=== PATIENT | female | born 1945 | race Caucasian/White ===

== ENCOUNTER → 2019-05-31 | Outpatient (CLI) | payer MEDICARE, OTHER ==
--- NOTE | 2019-05-31 17:04 | KCIC ---
EXAM: AP, lateral and lumbosacral spot views with bilateral oblique views of the lumbar spine DATE: 05/31/2019 12:00 AM INDICATION: Low back pain, degenerative disc disease, radiculopathy COMPARISON: No Prior FINDINGS: For the purposes of this report there are 5 nonrib-bearing lumbar-type vertebral bodies. Vertebral body heights are preserved. No evidence for acute fracture. There is 4 mm retrolisthesis of L2 on L3 and 3 mm retrolisthesis of L3 on L4. Moderate disc height loss at L1-2, L2-3 and L3-4. Moderate to severe disc height loss at L5-S1. No definite pars defects are seen on the oblique views. Advanced facet degenerative changes L3-4 and below. Vascular calcifications are seen. IMPRESSION: 1. No evidence for acute fracture. 2. Multilevel spondylosis as above. 3. Grade 1 retrolisthesis of L2 on L3 and L3 and L4. Electronically signed by: Carlton Suresh MD (05/31/2019 5:01 PM) [facility]
== END | disposition home or self-care (01) ==
LOC: KCIC 11:34
PROVIDERS: ATTEND Family Medicine
DX: M47.26 Other spondylosis with radiculopathy, lumbar region (principal); M43.16 Spondylolisthesis, lumbar region; M51.16 Intervertebral disc disorders with radiculopathy, lumbar region; R29.890 Loss of height
CPT/HCPCS: 72110

== ENCOUNTER → 2019-06-16 | Outpatient (CLI) | payer MEDICARE, OTHER ==
--- NOTE | 2019-06-16 11:03 | KCIC ---
LUMBAR SPINE WO CONTRAST History: Evaluate for lumbar stenosis. Abnormal x-ray. Right hip pain and right lateral calf pain. Technique: Multiplanar, multi sequential MR imaging was performed of the lumbar spine. Comparison: Radiograph May 31, 2019 Findings: Mild retrolisthesis L2 on L3 and L3 on L4, unchanged. Multilevel degenerative endplate changes. L5-S1 degenerative endplate edema with L5 inferior endplate and S1 superior endplate Schmorl's nodes. Normal vertebral body height. No fracture. Conus terminates at the normal location. No evidence of nerve root clumping. L1-L2: Small posterior disc bulge. Mild facet arthropathy. No canal or neuroforaminal narrowing. L2-L3: Mild retrolisthesis. Small posterior disc bulge. Moderate facet arthropathy. Right facet joint effusion. Mild bilateral subarticular recess narrowing. No canal narrowing. Mild bilateral neural foraminal narrowing. L3-L4: Mild retrolisthesis. Broad-based posterior disc bulge. Moderate facet arthropathy. Right facet joint effusion. Bilateral subarticular recess narrowing. Minimal canal narrowing. Mild right and moderate left neural foraminal narrowing. L4-L5: Broad-based posterior disc bulge. Advanced facet arthropathy. Subarticular recess narrowing. Mild canal narrowing. Mild bilateral neural foraminal narrowing. L5-S1: Severe disc height loss. Broad-based posterior disc bulge with right subarticular superimposed small disc protrusion. Advanced facet arthropathy. Severe right subarticular recess narrowing with abutment of the descending right S1 nerve root. Mild left subarticular recess narrowing. No canal narrowing. Moderate to severe bilateral neural foraminal narrowing. Impression: 1. Multilevel lumbar spondylosis with multilevel canal or subarticular recess narrowing. 2. L5-S1 severe right subarticular recess narrowing with compression of the descending right S1 nerve root. Correlate for right S1 radiculopathy. 3. Multilevel neural foraminal narrowing most prominent L5-S1. Correlate for bilateral L5 radiculopathy. Electronically signed by: Franklyn Tao DO (06/16/2019 11:00 AM) [id number]
== END | disposition home or self-care (01) ==
LOC: KCIC MRI 09:59
PROVIDERS: ATTEND Family Medicine
DX: M48.07 Spinal stenosis, lumbosacral region (principal); M51.16 Intervertebral disc disorders with radiculopathy, lumbar region; M53.3 Sacrococcygeal disorders, not elsewhere classified; M46.86 Other specified inflammatory spondylopathies, lumbar region
CPT/HCPCS: 72148

== ENCOUNTER → 2020-12-26 | Outpatient (CLI) | payer MEDICARE, OTHER ==
[~2020-12-26] MED LIST: ATOR80TA72 PO; FLUT9.9S NS; OLME40TA12 PO
== END ==
LOC: LAB 11:01
PROVIDERS: ATTEND Internal Medicine Gastroenterology
DX: Z01.812 Encounter for preprocedural laboratory examination (principal); Z20.822 Contact with and (suspected) exposure to COVID-19; R19.4 Change in bowel habit
CPT/HCPCS: U0003

== ENCOUNTER → 2020-12-29 | Day surgery (SDC) | payer MEDICARE, OTHER ==
[2020-12-29] MEDS: IV RINGERS,LACTATED 1000ML 1,000 ML IV SCH ×2 (07:00→08:28)
[2020-12-29 10:00] VITALS: BP 118/64
== END | disposition home or self-care (01) ==
LOC: SURG 07:54
PROVIDERS: ATTEND Internal Medicine Gastroenterology
DX: R19.4 Change in bowel habit (principal); K64.0 First degree hemorrhoids; K57.30 Diverticulosis of large intestine without perforation or abscess without bleeding; I10 Essential (primary) hypertension; E78.00 Pure hypercholesterolemia, unspecified; K21.9 Gastro-esophageal reflux disease without esophagitis; M19.90 Unspecified osteoarthritis, unspecified site; Z87.891 Personal history of nicotine dependence; Z79.899 Other long term (current) drug therapy; Z90.49 Acquired absence of other specified parts of digestive tract; Z90.710 Acquired absence of both cervix and uterus; Z98.890 Other specified postprocedural states; Z72.89 Other problems related to lifestyle
CPT/HCPCS: 45378

== ENCOUNTER → 2021-06-05 | Outpatient (CLI) | payer MEDICARE, OTHER ==
[2020-12-29 08:21] VITALS: BP 166/73
--- NOTE | 2021-06-05 15:36 | KCIC ---
EXAM: Right knee, 3 views. HISTORY: Pain. COMPARISON: None. FINDINGS: 3 views of the right knee are obtained. There is medial compartment joint space narrowing, subchondral sclerosis, subchondral cyst formation and marginal spurring. There is enthesopathy along the patella. There is a trace amount of joint fluid. There is no fracture, dislocation or subluxation . IMPRESSION: 1. Mild medial compartment predominant osteoarthritis of the right knee with trace joint fluid. 2. No acute osseous finding. Electronically signed by: Winnie Cruz MD (06/05/2021 3:34 PM) [id number]
== END ==
LOC: KCIC 13:37
PROVIDERS: ATTEND Family Medicine
DX: M17.11 Unilateral primary osteoarthritis, right knee (principal); M76.891 Other specified enthesopathies of right lower limb, excluding foot; M25.861 Other specified joint disorders, right knee
CPT/HCPCS: 73562

== ENCOUNTER → 2021-09-10 | Outpatient (CLI) | payer MEDICARE, OTHER ==
[2020-12-29 08:21] VITALS: BP 166/73
[~2021-09-10] MED LIST changes: +ASCO500T4 PO; +BIMA2.5D OP; +CHOL5000 PO; +ESOM40CA PO; +FAMO10TA26 PO; +HYDR-2761 PO; +LACT1CAP37 PO
--- NOTE | 2021-09-10 14:36 | RAD ---
STUDY: CT of the right upper extremity without contrast INDICATION: Right shoulder dislocation COMPARISON: Right shoulder radiograph same day CT chest 08/14/2021 TECHNIQUE: Axial CT imaging of the right shoulder without contrast. Coronal and sagittal reformats we re obtained. One or more of the following individualized dose reduction techniques were utilized for this examinat ion: 1. Automated exposure control 2. Adjustment of the mA and/or kV according to patient size 3. Use of iterative reconstruction technique. FINDINGS: There is persistent anterior and inferior dislocation of the head relative to the glenoid. There is a tiny fracture of the anterior inferior glenoid rim. Possible minimal flattening of the pos terior superior humeral head. Evaluation of the rotator cuff, labrum, and biceps tendon limited on nonarthrogram exam. Rotator cuff muscles are intact. There is a joint effusion and edema about the shoulder. Myocardial clavicular de generative joint disease. There is a 9 mm pulmonary nodule in the right middle lobe (image 100, series 2). A 7 mm nodule in the right lower lobe (image 93, series 2). Several additional nodules in the right lung measuring up to 5 mm. These are unchanged from 08/14/2021 long for differences in slice thickness of the exams. IMPRESSION: 1. Anterior glenohumeral dislocation. 2. Tiny osseous Bankart lesion of the glenoid. Possible minimal Hill-Sachs deformity of the humeral h ead. 3. Unchanged pulmonary nodules in the right lung. Recommend continued surveillance. Electronically signed by: Beth Cassidy MD (09/10/2021 2:33 PM) [id number]
== END ==
LOC: CT 10:49
PROVIDERS: ATTEND Orthopaedic Surgery
DX: S42.141A Displaced fracture of glenoid cavity of scapula, right shoulder, initial encounter for closed fracture (principal); S43.014A Anterior dislocation of right humerus, initial encounter; M25.411 Effusion, right shoulder; M19.011 Primary osteoarthritis, right shoulder; R91.8 Other nonspecific abnormal finding of lung field; X58.XXXA Exposure to other specified factors, initial encounter; Y93.89 Activity, other specified; Y92.89 Other specified places as the place of occurrence of the external cause; Y99.8 Other external cause status
CPT/HCPCS: 73200

== ENCOUNTER 2021-09-11 11:45 | Inpatient (IN) | payer MEDICARE, OTHER ==
[~2021-09-11] VITALS: Ht 160 cm; Wt 53.0 kg
[2021-09-11] MEDS ORDERED: IV RINGERS,LACTATED 1000ML 1,000 ML IV SCH (12:00)
[2021-09-11] MEDS ORDERED: fentaNYL PF VIAL 100 MCG/2 ML VIAL IVP PRN ×2 (12:00)
[2021-09-11] MEDS ORDERED: PROCHLORPERAZINE 10 MG/2 ML VIAL. IVP PRN (12:00)
[2021-09-11] MEDS ORDERED: MORPHINE SULFATE 2 MG/ML INJ. IVP PRN (12:00)
[2021-09-11] MEDS ORDERED: HYDROmorphone 2 MG/ML VIAL IVP PRN (12:00)
[2021-09-11 12:10] VITALS: BP 181/75
[2021-09-11] MEDS ORDERED: ceFAZolin SODIUM IV Push 1 GM VIAL. IVP ONE (12:26)
[2021-09-11] MEDS ORDERED: ROPIVacaine 0.5% PF 20 ML VIAL. ONE (12:33)
[2021-09-11] MEDS ORDERED: MIDAZOLAM HCL/PF 2 MG/2 ML VIAL. ONE (12:33)
[2021-09-11] MEDS ORDERED: ceFAZolin SODIUM IV Push 1 GM VIAL. IVP PRN (13:00)
[2021-09-11] MEDS ORDERED: fentaNYL PF VIAL 100 MCG/2 ML VIAL ONE (13:42)
[2021-09-11] MEDS ORDERED: VANCOMYCIN 1 GM VIAL. ONE (13:44)
[2021-09-11] MEDS ORDERED: BUPIVACAINE MPF 0.5% 30 ML VIAL. ONE (13:45)
[2021-09-11] MEDS ORDERED: methylPREDNISolone ACETATE 80 MG/ML VIAL. ONE (13:45)
[2021-09-11] MEDS ORDERED: DEXAMETHASONE SOD PHOS 20 MG/5 ML VIAL. ONE (14:04)
[2021-09-11] MEDS ORDERED: PROPOFOL 10 MG/ML (20ML) VIAL. IV ONE (14:04)
[2021-09-11] MEDS ORDERED: ONDANSETRON PF 4 MG/2 ML VIAL. ONE (14:05)
[2021-09-11] MEDS ORDERED: LIDOCAINE 2% PF 5 ML VIAL. ONE (14:05)
[2021-09-11] MEDS ORDERED: ROCURONIUM 50 MG/5 ML VIAL. ONE (14:05)
[2021-09-11] MEDS ORDERED: NEOSTIGMINE METHYLSULFATE 5 MG/5 ML SYRINGE. ONE (15:48)
[2021-09-11] MEDS ORDERED: GLYCOPYRROLATE 1 MG/5 ML VIAL. ONE (15:48)
[2021-09-11] MEDS ORDERED: 0.9 % SODIUM CHLORIDE 10 ML DISP.SYRIN. IV PRN (17:30)
[2021-09-11] MEDS ORDERED: DEXTROSE 50% 25 GM / 50ML DISP.SYRIN. IV PRN (17:30)
[2021-09-11] MEDS ORDERED: ACETAMINOPHEN 325 MG TABLET. PO PRN (17:30)
[2021-09-11] MEDS ORDERED: ZOLPIDEM 5 MG TABLET. PO PRN (17:30)
[2021-09-11] MEDS ORDERED: CALCIUM CARBONATE 500 MG TAB.CHEW PO PRN (17:30)
[2021-09-11] MEDS ORDERED: traMADol 50 MG TABLET PO PRN ×2 (17:30)
[2021-09-11] MEDS ORDERED: NALOXONE 0.4 MG/ML VIAL. IV PRN (17:30)
[2021-09-11] MEDS ORDERED: IV NORMAL SALINE 1000ML BAG 1,000 ML IV SCH (17:30)
[2021-09-11] MEDS ORDERED: PROCHLORPERAZINE 5 MG TABLET. PO PRN (17:30)
[2021-09-11] MEDS ORDERED: MORPHINE SULFATE 2 MG/ML INJ. IV PRN (17:30)
[2021-09-11] MEDS ORDERED: IV DEXTROSE 5 %-0.45 % NACL 1,000 ML IV SCH (17:30)
--- NOTE | 2021-09-11 18:16 | PDOC4 ---
Operative Note Operative Note Date of surgery 09/11/2021 Preoperative diagnosis: Right shoulder dislocation with chronic anterior positioning Postoperative diagnosis: Same with Alpsa lesion and rotator cuff compromise Operative procedure: Right reverse shoulder arthroplasty Surgeon: Malvin Assist: Gianluca brink assist Anesthesia: General plus scalene block Estimated blood loss: 250cc Complications: None Operative indications: Please see my orthopedic clinic note for detailed operative indications and note that we discussed the condition of persistent dislocation for about 12 days following her injury and the possibility of closed reduction versus operative treatment possible Latarjet stabilization versus the possibility of reverse shoulder arthroplasty depending on her intraoperative findings. Consent was obtained and she agrees to proceed with surgical evaluation and treatment Operative text: Patient was identified procedure verified patient placed in the supine position on the operating table. After adequate amounts of general anesthesia plus a pre-existing scalene block were obtained patient was placed in the supine position on the operating room cart and closed reduction of the shoulder was attempted under general anesthesia but failed. She was then placed in the beachchair position all bony prominences were well-padded and the right shoulder was prepped and draped in standard sterile fashion. After timeout was performed patient procedure identified and verified a deltopectoral approach was carried out on the right shoulder deltoid was bluntly elevated from its distal insertion and subscapularis was divided sharply from its insertion. Supraspinatus and infraspinatus noted to be compromised and she was noted to have a periosteal sleeve avulsion. Sharp reamer was advanced and reaming carried out up to a size 11 mm diameter and the cutting guide set at approximately 10 degrees version for the Janina reverse shoulder arthroplasty system. Proximal reaming carried out to allow placement of a 11 x 130 mm trial stem. Glenoid was then exposed capsular release was carried out and a guidewire was placed in slight declination low centrally on the glenoid face first over drilling was accomplished and then a reamer carried out to good bleeding bone and with debridement of the residual labral tissue a 15 mm trabecular metal baseplate was placed and excellent positioning of screws inferiorly into the scapular spine for a 36 mm length and to the base of the coracoid with 36 mm length were excellent fixation and were locked in place. A 36 mm glenosphere was then impacted in place to engage the Burleson taper and trial fitting with a +3 mm standard trial resulted in excellent range of motion and stability. Trial humeral components were then removed through irrigation carried out normal saline solution and a nonporous humeral stem 11 x 130 length was assembled on the back table with a +3 mm 36 mm diameter polyethylene liner which was impacted in place in proper version reduced and found to have equivalent deltoid tension and stability. Thorough irrigation carried out with dilute Betadine solution further irrigation with saline solution and pulse lavage 1 g vancomycin was placed in the joint fascia closure accomplished with running Vicryl suture subcutaneous closure with buried Vicryl suture skin closure with subcuticular Monocryl and sterile dressings were applied. Patient was returned to recovery room in stable condition having tolerated procedure well. Gianluca baker was present for the procedure and assisted in patient positioning prepping draping retraction closure and dressings. GERMANIA KHAN MD Sep 11, 2021 18:16
[2021-09-11 19:30] VITALS: BP 120/63
[2021-09-11 20:30] VITALS: BP 120/51
--- NOTE | 2021-09-11 20:50 | RAD ---
Exam: Right shoulder 2 views INDICATION: Postop TECHNIQUE: Frontal and transscapular Y views of the right shoulder Comparisons: None FINDINGS: Total shoulder arthroplasty changes noted. Skin dmitriy overlying the surgical site is seen. Soft tis sues are unremarkable. No acute fractures seen. IMPRESSION: Right shoulder arthroplasty as described above. Electronically signed by: Marie Guerra MD (09/11/2021 8:48 PM) [facility]
[2021-09-11] MEDS: oxyCODONE/APAP 5/325 1 TAB TABLET PO PRN (21:52)
[2021-09-11] MEDS: CELECOXIB 100 MG CAPSULE. PO SCH (21:52)
[2021-09-11] MEDS: ceFAZolin SODIUM IV Push 1 GM VIAL. IVP SCH (21:53)
[2021-09-11 22:00] VITALS: BP 124/53
[2021-09-11] MEDS ORDERED: LATANOPROST 0.005% OPHTH SOLUTION 2.5ML BOTTLE. OU SCH (22:00)
[2021-09-11] MEDS ORDERED: FAMOTIDINE 20 MG TABLET. PO PRN (22:00)
[2021-09-11 23:00] VITALS: BP 125/64
[2021-09-12] MEDS: oxyCODONE/APAP 7.5/325 1 TAB TABLET PO PRN ×2 (02:03→17:12)
[2021-09-12] MEDS: ceFAZolin SODIUM IV Push 1 GM VIAL. IVP SCH ×2 (04:05→09:00)
[2021-09-12] MEDS ORDERED: MAGNESIUM HYDROXIDE 2,400 MG/30 ML ORAL.SUSP. PO PRN (06:00)
[2021-09-12 06:29] VITALS: BP 106/51
[2021-09-12 07:33] LABS: HEMATOCRIT 29.6 % (36.0-47.0); HEMOGLOBIN 9.7 g/dL (12.0-15.5)
--- NOTE | 2021-09-12 08:30 | NUR ---
awake sitting on side of bed. right side remains bruised and swollen. saline lock intact. surgical dressing has a moderate amount of drainage. right hand remains swollen and dark purple. sling remains in place. ice renewed. transferred to chair. good pulse and ovement in right fingers.
[2021-09-12] MEDS: FERROUS SULFATE 325 MG TABLET. PO SCH ×2 (08:44→09:00)
[2021-09-12] MEDS: ATORVASTATIN CALCIUM 40 MG TABLET. PO SCH ×2 (08:44→09:00)
[2021-09-12] MEDS: CELECOXIB 100 MG CAPSULE. PO SCH (08:44)
[2021-09-12] MEDS: oxyCODONE/APAP 5/325 1 TAB TABLET PO PRN ×2 (08:47→12:08)
[2021-09-12] MEDS ORDERED: FLUTICASONE 50MCG/NASAL SPRAY 16GM BOTTLE. NS SCH (09:00)
[2021-09-12] MEDS ORDERED: SENNOSIDES/DOCUSATE 8.6/50MG TABLET. PO SCH (09:00)
[2021-09-12] MEDS ORDERED: LACTOBACILLUS RHAMNOSUS GG 1 CAPSULE. PO SCH (09:00)
[2021-09-12] MEDS ORDERED: ASCORBIC ACID 500 MG TABLET PO SCH (09:00)
[2021-09-12] MEDS ORDERED: MULTIVITAMIN with MINERAL TABLET. PO SCH (09:00)
--- NOTE | 2021-09-12 10:30 | NUR ---
original surgical dressing removed. dmitriy intact. no bruising around dmitriy or redness. she remains bruised in the inner arm breast and rib area. CLARENCE renewed. medicated for pain with Percocet.
[2021-09-12] MEDS ORDERED: BISACODYL 10 MG SUPP.RECT. PR PRN (16:00)
--- NOTE | 2021-09-12 17:00 | NUR ---
waiting for the doctor. son at bedside. reviewed orally discharge instructions regarding dressing ,incision care, follow up, medications and care for right arm such as sling, dressing and how to shower. saline lock removed. ambulated in the lina[place] with son.
--- NOTE | 2021-09-12 18:01 | NUR ---
Dr. Coombs here. dismissed to home with son reviewed written discharge instructions especially incisional care, follow up and her medications. verbalized understanding of these instructions.
--- NOTE | 2021-09-12 18:58 | DISCH ---
DISCHARGE INSTRUCTIONS Condition on Discharge Condition on Discharge: Stable Activity After Discharge Activity Instructions for Disc: Activity as tolerated, Other, see below (May use right arm for fine motor use reaching grasping eating writing typing etc., no reaching around back like to talk in shirt for 2 months postoperatively) Bathing Instructions: Shower-keep dressing dry, No Tub Bath until see Lifting Instructions after Dis: No heavy lifting, No pulling or pushing, Do not lift >10 pounds Exercise Instruction after Dis: Progress as tolerated Driving Instructions after Dis: Do not drive Weight Bearing Status after Di: No restrictions Diet after Discharge Diet after Discharge: Regular Wound Incision Care Wound/Incision Care: Ice to area for comfort, Keep wound elevated (Keep forearm and hand elevated for swelling and squeeze hand with stress ball or silly putty etc. to help move fluid out of arm, sling only as necessary), Do not change dressing Other wound/incision instructi: remove battery pack on tuesday 09/18 unscrew tubing from dresing tape end do Checks after Discharge DC Comment: increase fruits, vegetables and fiber Community/Resources/Services Services at Discharge: PT EVALUATE & TREAT (Standard reverse shoulder precautions, avoid bringing arm into extreme internal rotation for 2 months postoperatively) Contacting the after DC Call your doctor for: Concerns you may have Follow-Up Follow Up With: F/U with Dr. Coombs on 09/19 at 0910 if need to reschedule call [phone] GERMANIA COOMBS MD Sep 12, 2021 18:58
--- NOTE | 2021-09-12 21:14 | DS ---
DATE OF DISCHARGE: 09/12/2021 PREOPERATIVE DIAGNOSES: Anterior dislocation, right glenohumeral joint with chronic dislocation for 12 days. SECONDARY DIAGNOSES: Rotator cuff and capsular periosteal sleeve avulsion. PROCEDURE: Right reverse shoulder arthroplasty. DISPOSITION: Home with outpatient physical therapy. DISPOSITION MEDICATIONS: Include Percocet 7.5/325 one p.o. q.4 hours p.r.n. pain, which she already had gotten preoperatively. Stopped hydrocodone and continued her other home medications. ACTIVITY: Is motion as tolerated except for no extreme internal rotation or reaching around the back, for example to tuck in her shirt for 2 months postoperatively. Otherwise work on range of motion, stretching, deltoid strengthening. Follow up with Dr. Coombs in 1 week. Call if CLARENCE dressing is saturated or any redness, drainage or other problems. Elevate hand and forearm due to previous severe swelling and use a stress ball and gentle grasping of the hand to help along with elevation to treat the swelling. BRIEF DESCRIPTION OF HOSPITAL COURSE: The patient underwent procedure of a failed closed reduction of her chronically dislocated right shoulder. Open reduction was then attempted, but she had severe compromise of the structures as noted in her operative note resulting in a reverse shoulder arthroplasty procedure. Postoperatively, was noted to be neurovascularly intact. Her pain control is better now than preoperatively due to the stability of the shoulder. We went over her instructions verbally and she underwent a light session with physical therapy as well. Pain was otherwise well controlled. She maintained a good medical stability and was discharged home in stable condition on postoperative day #1. REX DR: Roxana TID: [id number]
== END 2021-09-12 18:15 | disposition home or self-care (01) | DRG 483 ==
LOC: SURG 11:45 → 4 SOUTHEST 17:20 → OBSVTOIN 09-12 10:20
PROVIDERS: ADMIT Orthopaedic Surgery; ATTEND Orthopaedic Surgery
PROC: 0RRJ00Z Replacement of Right Shoulder Joint with Reverse Ball and Socket Synthetic Substitute, Open Approach (ICD-10-PCS; principal; 2021-09-11 14:00)
DX: S43.004A Unspecified dislocation of right shoulder joint, initial encounter (principal); Z79.899 Other long term (current) drug therapy; Z88.8 Allergy status to other drugs, medicaments and biological substances; Z91.040 Latex allergy status; T14.8XXA Other injury of unspecified body region, initial encounter; X58.XXXA Exposure to other specified factors, initial encounter; Y93.89 Activity, other specified; Y92.89 Other specified places as the place of occurrence of the external cause; Y99.8 Other external cause status; Z90.49 Acquired absence of other specified parts of digestive tract; Z90.710 Acquired absence of both cervix and uterus; E78.5 Hyperlipidemia, unspecified; I10 Essential (primary) hypertension; Z82.49 Family history of ischemic heart disease and other diseases of the circulatory system
CPT/HCPCS: 36415; 73030; 73200; 85014; 85018; A4565; A4928; A4930; A6223; A6253; A6402; A6550; C1713; C1776; G0378; G0379; J0690; J1040; J1100; J2250; J2270; J2405; J2704; J2710; J2795; J3010; J3370; J3490; 97110-GP; 97116-GP; 97150-GP; 97535-GO

== ENCOUNTER → 2021-11-30 | Outpatient (CLI) | payer MEDICARE, OTHER ==
--- NOTE | 2021-11-30 11:39 | RAD ---
NM PET/CT SKULL BASE TO MID THIGH Clinical Indication: Pulmonary nodule Comparison: Chest CT August 14, 2021 and February 08, 2021 Technique: Patient blood glucose at the time of injection is 143 mg/dL. The patient was administered 11.4 mCi of F-18 FDG intravenously. The patient rested quietly during a 60 minute uptake period. Then PET imaging from the skull base to the upper thighs was performed. A noncontrast CT was acquired ove r this same area. The CT is for attenuation correction and anatomic localization, it is not of diagno stic quality and is not intended to diagnose disease independently of the PET. PQRS Compliance Statement: One or more of the following individualized dose reduction techniques were utilized for this examinat ion: 1. Automated exposure control 2. Adjustment of the mA and/or kV according to patient size 3. Use of iterative reconstruction technique Findings: Background: Mediastinal SUV max: 2.9 Liver SUV max: 4 Head and neck: Foci of uptake within the thoracic inlet related to brown fat. Small left level 2 lymph node measures 6 x 5 mm (series 401 image 15) with mild metabolic activity SUV max 3.6. Chest: No pathologic lymphadenopathy. Coronary artery calcifications. No consolidation or pleural effusion. Mild linear atelectasis. No pneumothorax. Mild pulmonary emphysema. Small hiatal hernia. Unchanged 9 mm anterior posterior by 7 mm transverse right middle lobe pulmonary nodule (series 3 izabel ge 80) with SUV max 1.2. Unchanged 7 mm right lower lobe pulmonary nodule (image 173) SUV max 1.1. Un changed 3 mm right lower lobe pulmonary nodule adjacent to the fissure (image 74). 2 mm left upper lo be pulmonary nodule (image 61), unchanged. Additional smaller pulmonary nodules are better characteri zed previously. Abdomen and pelvis: Right hepatic lobe cyst measures 2.5 cm. The spleen, adrenal glands, pancreas and gallbladder are unr emarkable. Mild right pelvocaliectasis. Increased density within the right distal ureter (series 3 image 177), m ay represent 2 to 3 mm ureteral calculus although evaluation is degraded due to technique. Mild colonic diverticulosis. Appendix not well seen. No evidence of bowel obstruction. Atheromatous plaque throughout the nonaneurysmal abdominal aorta and branch vessels. Prior hysterectomy. Small ant erior abdominal wall supraumbilical fat-containing hernia. Musculoskeletal: Right shoulder arthroplasty. No hypermetabolic osseous abnormality. IMPRESSION: 1. Unchanged right middle lobe pulmonary nodule without significant metabolic activity, favor benign etiology. Conservatively recommend 6-12 month follow-up chest CT given potential increase in size co mpared to prior. 2. Unchanged additional pulmonary nodules. PET indeterminate given size. Recommend attention on foll ow-up. 3. Small mildly metabolic left level 2 cervical lymph node, potentially reactive. If persistent clin ical concern, recommend follow-up. 4. Mild right pelvocaliectasis with increased density in the right distal ureter, may represent smal l calculus or artifact. Recommend further clinical evaluation. Electronically signed by: Franklyn Tao DO (11/30/2021 11:36 AM) [id number]
== END ==
LOC: PETSC 08:59
PROVIDERS: ATTEND Internal Medicine Pulmonary Disease
DX: R91.8 Other nonspecific abnormal finding of lung field (principal); J43.9 Emphysema, unspecified; J98.11 Atelectasis; K57.30 Diverticulosis of large intestine without perforation or abscess without bleeding; K42.9 Umbilical hernia without obstruction or gangrene; K44.9 Diaphragmatic hernia without obstruction or gangrene; K76.89 Other specified diseases of liver; I25.10 Atherosclerotic heart disease of native coronary artery without angina pectoris; I70.0 Atherosclerosis of aorta; Z90.710 Acquired absence of both cervix and uterus; Z96.611 Presence of right artificial shoulder joint
CPT/HCPCS: 78815; A9552